=== PATIENT | female | born 1935 | race Hispanic/Latino ===

== ENCOUNTER 2017-10-25 09:33 | Observation (INO) | payer OTHER, MEDICARE ==
[~2017-10-25] VITALS: Ht 160 cm; Wt 88.2 kg
[2017-10-25] MEDS ORDERED: METHYLPREDNISOLONE SOD SUCC 40MG/ML 1ML ONE (10:39)
[2017-10-25] MEDS ORDERED: BENZONATATE 100 MG CAPSULE PO ONE (10:40)
[2017-10-25] MEDS ORDERED: IPRATROPIUM/ALBUTEROL SULFATE 3 ML SOLUTION IH ONE (10:51)
[2017-10-25 10:53] LABS: BASOPHILS % (AUTO) 1.9 % (0.0-5.0); EOSINOPHILS % (AUTO) 9.4 % (0.0-8.0); HEMATOCRIT 34.6 % (36-48); LYMPHOCYTES % (AUTO) 19.6 % (21.0-51.0); MEAN CORPUSCULAR HEMOGLOBIN 35.3 pg (27.0-33.0); MEAN CORPUSCULAR HGB CONC 33.5 g/dL (32.0-36.0); MEAN CORPUSCULAR VOLUME 105.1 fL (79-99); MONOCYTES % (AUTO) 4.8 % (3.0-13.0); NEUTROPHILS % (AUTO) 64.3 % (40.0-77.0); PLATELET COUNT (AUTO) 378 K/uL (130-400); RED BLOOD CELL COUNT(AUTO) 3.29 MIL/uL (4.00-5.50); RED CELL DISTRIBUTION WIDTH 19.5 % (11.0-15.5)
[2017-10-25 11:12] LABS: CREATININE 0.6 mg/dL (0.5-1.5); POTASSIUM 3.9 mmol/L (3.5-5.1)
[2017-10-25 11:17] LABS: ALBUMIN 3.6 g/dL (3.5-5.0); BILIRUBIN,TOTAL 0.7 mg/dL (0.2-1.0); TOTAL PROTEIN, SERUM 6.9 g/dL (6.0-8.3)
[2017-10-25] MEDS ORDERED: ACETAMINOPHEN 325 MG TAB ONE (15:16)
[2017-10-25 15:50] VITALS: BP 144/68
[2017-10-25] MEDS: IPRATROPIUM/ALBUTEROL SULFATE 3 ML SOLUTION IH PRN ×2 (18:04→22:17)
[2017-10-25] MEDS ORDERED: ALBU18HF7 IH (18:22)
[2017-10-25] MEDS ORDERED: TYL3 PO (18:22)
[2017-10-25] MEDS: METHYLPREDNISOLONE SOD SUCC 40MG/ML 1ML IVP SCH (18:27)
[2017-10-25] MEDS ORDERED: ALBUTEROL SULFATE 0.083% 2.5 MG/3 ML INH IH PRN (18:30)
[2017-10-25 20:30] VITALS: BP 139/69
[2017-10-25 23:50] VITALS: BP 141/70
[2017-10-26] MEDS: METHYLPREDNISOLONE SOD SUCC 40MG/ML 1ML IVP SCH ×5 (01:04→23:16)
[2017-10-26] MEDS: IPRATROPIUM/ALBUTEROL SULFATE 3 ML SOLUTION IH PRN ×5 (01:04→18:16)
[2017-10-26] MEDS: ACETAMINOPHEN-CODEINE 300/30MG TAB PO PRN ×3 (02:39→18:02)
[2017-10-26] MEDS ORDERED: BENZONATATE 100 MG CAPSULE PO ONE (03:19)
[2017-10-26 04:30] VITALS: BP 144/65
[2017-10-26 08:00] VITALS: BP 144/66
[2017-10-26 12:00] VITALS: BP 140/62
[2017-10-26 15:44] VITALS: BP 110/54
[2017-10-26] MEDS: BENZONATATE 100 MG CAPSULE PO PRN (17:57)
[2017-10-26] MEDS: AZITHROMYCIN 250 MG TABLET PO SCH (18:02)
[2017-10-26 20:06] VITALS: BP 143/77
[2017-10-26] MEDS ORDERED: BENZOCAINE/MENTH/CETYLPYRD CL 1 EACH LOZENGE MM ONE (21:22)
[2017-10-26] MEDS ORDERED: BENZOCAINE/MENTH/CETYLPYRD CL 1 EACH LOZENGE MM PRN (21:30)
[2017-10-27] VITALS (7 sets, daily range): BP systolic 128–169; BP diastolic 63–85
[2017-10-27] MEDS: IPRATROPIUM/ALBUTEROL SULFATE 3 ML SOLUTION IH PRN ×6 (01:56→22:14)
[2017-10-27] MEDS: METHYLPREDNISOLONE SOD SUCC 40MG/ML 1ML IVP SCH ×3 (04:34→17:44)
[2017-10-27 05:10] LABS: HEMATOCRIT 31.9 % (36-48); MEAN CORPUSCULAR HEMOGLOBIN 35.7 pg (27.0-33.0); MEAN CORPUSCULAR HGB CONC 33.8 g/dL (32.0-36.0); MEAN CORPUSCULAR VOLUME 105.6 fL (79-99); PLATELET COUNT (AUTO) 370 K/uL (130-400); RED BLOOD CELL COUNT(AUTO) 3.02 MIL/uL (4.00-5.50); WHITE BLOOD COUNT (AUTO) 9.7 K/uL (4.8-10.8)
[2017-10-27 05:19] LABS: CREATININE 0.6 mg/dL (0.5-1.5); POTASSIUM 4.1 mmol/L (3.5-5.1)
[2017-10-27 05:26] LABS: LYMPHOCYTES % (MANUAL) 7 % (22-44); MAN.DIFF COMMENT-IMPRESSION MANUAL DIFFERENTIAL; MONOCYTES % (MANUAL) 2 % (2-9); PLATELET MORPHOLOGY COMMENT ADEQUATE; SEGMENTED NEUTROPHILS % 91 % (40-70)
[2017-10-27] MEDS: BENZONATATE 100 MG CAPSULE PO PRN (08:03)
[2017-10-27] MEDS: ACETAMINOPHEN-CODEINE 300/30MG TAB PO PRN (08:03)
[2017-10-27 09:52] LABS: APPEARANCE,URINE Clear (CLEAR); BILIRUBIN,URINE Negative (NEGATIVE); COLOR,URINE Yellow (YELLOW); GLUCOSE, URINE (UA) Negative (NEGATIVE); KETONES,URINE Negative (NEGATIVE); LEUKOCYTE ESTERASE ,URINE Trace (NEGATIVE); NITRATE,URINE Negative (NEGATIVE); OCCULT BLOOD,URINE Negative (NEGATIVE); PH,URINE 6.5 (5.0-8.0); PROTEIN,URINE Negative (NEGATIVE)
[2017-10-27 09:59] LABS: BACTERIA,URINE Rare /HPF (None Seen); RBC,URINE 0-1 /HPF (0-1); SQUAMOUS EPITHELIAL CELL,UR Rare /LPF (0-2); WBC,URINE 0-1 /HPF (0-1)
[2017-10-27] MEDS: AZITHROMYCIN 250 MG TABLET PO SCH (17:45)
[2017-10-28 03:55] VITALS: BP 153/78
[2017-10-28 08:00] VITALS: BP 149/80
[2017-10-28] MEDS: BENZONATATE 100 MG CAPSULE PO PRN (09:48)
[2017-10-28 11:00] VITALS: BP 154/91
== END 2017-10-28 16:59 | disposition home or self-care (01) ==
LOC: EDH 09:33 → EDHIP 12:27 → 4BH 15:59
PROVIDERS: ADMIT Internal Medicine; ATTEND Internal Medicine
DX: J45.41 Moderate persistent asthma with (acute) exacerbation (principal); J20.9 Acute bronchitis, unspecified; I12.9 Hypertensive chronic kidney disease with stage 1 through stage 4 chronic kidney disease, or unspecified chronic kidney disease; N18.9 Chronic kidney disease, unspecified; I45.10 Unspecified right bundle-branch block; E78.5 Hyperlipidemia, unspecified; I73.9 Peripheral vascular disease, unspecified; K21.9 Gastro-esophageal reflux disease without esophagitis; M81.0 Age-related osteoporosis without current pathological fracture; Z83.3 Family history of diabetes mellitus; Z91.19 Patient's noncompliance with other medical treatment and regimen; Z79.899 Other long term (current) drug therapy; Z98.49 Cataract extraction status, unspecified eye
CPT/HCPCS: 36415 ×2; 71046; 80048; 80053; 81001; 84484; 85025 ×2; 93005; 94640 ×14; 94664; 96374; 96376 ×2; 99285; A4510; G0378 ×77; J2920 ×10

== ENCOUNTER 2018-06-11 07:18 | Emergency (ER) | payer OTHER, MEDICARE ==
[~2018-06-11 07:18] MED LIST: ALBU18HF7 IH; TYL3 PO
[2018-06-11] MEDS ORDERED: IPRATROPIUM/ALBUTEROL SULFATE 3 ML SOLUTION IH ONE ×2 (07:34→08:00)
[2018-06-11] MEDS ORDERED: METHYLPREDNISOLONE SOD SUCC 125MG/2ML VIAL ONE (07:35)
[2018-06-11 07:36] LABS: EOSINOPHILS % (AUTO) 10.9 % (0.0-8.0); HEMATOCRIT 35.9 % (36-48); LYMPHOCYTES % (AUTO) 26.3 % (21.0-51.0); MEAN CORPUSCULAR HEMOGLOBIN 33.5 pg (27.0-33.0); MEAN CORPUSCULAR HGB CONC 32.5 g/dL (32.0-36.0); MEAN CORPUSCULAR VOLUME 103.2 fL (79-99); MONOCYTES % (AUTO) 3.8 % (3.0-13.0); PLATELET COUNT (AUTO) 350 K/uL (130-400); RED BLOOD CELL COUNT(AUTO) 3.47 MIL/uL (4.00-5.50); RED CELL DISTRIBUTION WIDTH 14.8 % (11.0-15.5); WHITE BLOOD COUNT (AUTO) 7.1 K/uL (4.8-10.8)
[2018-06-11 07:44] LABS: CREATININE 0.6 mg/dL (0.5-1.5); POTASSIUM 4.1 mmol/L (3.5-5.1)
[2018-06-11 07:51] LABS: ALBUMIN 3.6 g/dL (3.5-5.0); BILIRUBIN,TOTAL 0.6 mg/dL (0.2-1.0)
[2018-06-11 08:01] LABS: INR 0.98 (0.85-1.15); PARTIAL THROMBOPLASTIN TIME 29.2 SEC (26.3-35.5); PROTHROMBIN TIME 10.3 SEC (9.6-11.6)
[2018-06-11] MEDS ORDERED: ALBUTEROL SULFATE 0.083% 2.5 MG/3 ML INH IH ONE (12:41)
== END 2018-06-11 15:39 | disposition home or self-care (01) ==
LOC: EDH 07:18
DX: J45.41 Moderate persistent asthma with (acute) exacerbation (principal)
CPT/HCPCS: 36415; 71045; 80053; 82550; 83605; 84484; 85025; 85610; 85730; 87804 ×2; 93005; 94640 ×3; 96374; 99291; 99292; J2930

== ENCOUNTER 2019-05-18 14:13 | Observation (INO) | payer OTHER, MEDICARE ==
[~2019-05-18] VITALS: Ht 162.6 cm; Wt 72.5 kg
[2019-05-18 15:29] LABS: BASOPHILS % (AUTO) 0.9 % (0.0-5.0); EOSINOPHILS % (AUTO) 3.9 % (0.0-8.0); HEMATOCRIT 30.8 % (36-48); LYMPHOCYTES % (AUTO) 22.3 % (21.0-51.0); MEAN CORPUSCULAR HEMOGLOBIN 39.5 pg (27.0-33.0); MEAN CORPUSCULAR VOLUME 115.9 fL (79-99); MONOCYTES % (AUTO) 4.4 % (3.0-13.0); NEUTROPHILS % (AUTO) 68.5 % (40.0-77.0); PLATELET COUNT (AUTO) 325 K/uL (130-400); RED BLOOD CELL COUNT(AUTO) 2.66 MIL/uL (4.00-5.50); RED CELL DISTRIBUTION WIDTH 14.7 % (11.0-15.5); WHITE BLOOD COUNT (AUTO) 7.4 K/uL (4.8-10.8)
[2019-05-18 15:43] LABS: CREATININE 0.8 mg/dL (0.5-1.5); POTASSIUM 4.4 mmol/L (3.5-5.1)
[2019-05-18 15:48] LABS: ALBUMIN 3.6 g/dL (3.5-5.0); BILIRUBIN,TOTAL 0.4 mg/dL (0.2-1.0); TOTAL PROTEIN, SERUM 6.6 g/dL (6.0-8.3)
[2019-05-18] MEDS ORDERED: IOHEXOL-350 75 ML VIAL IV ONE (15:49)
[2019-05-18 17:30] VITALS: BP 135/68
[2019-05-18 20:00] VITALS: BP 150/65
[2019-05-18] MEDS ORDERED: IPRATROPIUM/ALBUTEROL SULFATE 3 ML SOLUTION IH PRN (20:00)
[2019-05-18] MEDS: ZOSYN 3.375GM+NS 50ML 50 ML IV SCH (21:41)
[2019-05-19] VITALS: BP 151/48
[2019-05-19 04:00] VITALS: BP 151/75
[2019-05-19] MEDS: ZOSYN 3.375GM+NS 50ML 50 ML IV SCH ×3 (05:32→20:31)
[2019-05-19 05:41] LABS: HEMATOCRIT 28.1 % (36-48); MEAN CORPUSCULAR HEMOGLOBIN 39.2 pg (27.0-33.0); MEAN CORPUSCULAR HGB CONC 34.1 g/dL (32.0-36.0); PLATELET COUNT (AUTO) 305 K/uL (130-400); RED BLOOD CELL COUNT(AUTO) 2.44 MIL/uL (4.00-5.50); RED CELL DISTRIBUTION WIDTH 14.7 % (11.0-15.5); WHITE BLOOD COUNT (AUTO) 5.4 K/uL (4.8-10.8)
[2019-05-19 05:56] LABS: ALBUMIN 3.1 g/dL (3.5-5.0); BILIRUBIN,TOTAL 0.5 mg/dL (0.2-1.0); CREATININE 0.7 mg/dL (0.5-1.5); POTASSIUM 4.1 mmol/L (3.5-5.1); TOTAL PROTEIN, SERUM 5.8 g/dL (6.0-8.3)
[2019-05-19 07:00] VITALS: BP 155/66
[2019-05-19 11:00] VITALS: BP 139/64
[2019-05-19 16:00] VITALS: BP 144/63
[2019-05-19] MEDS: PANTOPRAZOLE 40 MG/VIAL IVP SCH (16:13)
--- NOTE | 2019-05-19 16:50 | NUR ---
INIITIAL MET W PT ALONE, AAOX3, NPO- COMPLAINING OF HUNGER, TESTS IN PROGRESS, RE EXPLAINED RATIONALE FOR NPO AND DIAGNOSTICS, EXHIBITED GOOD UNDERSTANDING- LIVES ALONE, INDEPENDENT, DRIVES, STAIRS UP INTO THE HOUSE, STATES I DO NOT NEED ANY HELP OR EQUIPMENT, MY HOSUE IS SON[facility] AND SAFE, I DO ALL MY OWN HOUSE WORK" GERTRUDE THORNTON TO PROVIDE TRANSPORT Addendum: 05/19/19 at 1902 by ANGE LEE RN CM Amended: Links added.
[2019-05-19 19:49] VITALS: BP 121/57
--- NOTE | 2019-05-19 21:57 | NUR ---
MD ROUNDS DR. AGGARWAL HERE SPOKE WITH PATIENT. RECEIVED ORDERS TO START PATIENT ON REGULAR DIET TONIGHT IF SHE SO WANTS AND WILL COME TOMORROW. SEE WHAT SURGEON PLAN IS AND POSSIBLY DISCHARGE HOME IF NO SURGERY OR OTHER PROCEDURES ARE TO BE DONE AND EXPLAINED THIS TO PATIENT.
[2019-05-19] MEDS ORDERED: TRAMADOL HCL 50 MG TABLET PO PRN (22:00)
[2019-05-20 03:45] VITALS: BP 128/62
[2019-05-20] MEDS: ZOSYN 3.375GM+NS 50ML 50 ML IV SCH (06:04)
[2019-05-20 07:30] VITALS: BP 143/55
[2019-05-20 11:00] VITALS: BP 122/40
[2019-05-20] MEDS: PANTOPRAZOLE 40 MG/VIAL IVP SCH (11:02)
--- NOTE | 2019-05-20 12:00 | NUR ---
NOTE ELYSIA EPPERSON CAME IN EARLIER AND WROTE OKAY TO DC FROM [facility]. SHE WILL FOLLOW UP WITH THEM IF NEEDED. DR AGGARWAL PAGED TO ASK FOR DC ORDERS. ALSO WAS RECOMMENDED FROM SURGEON TO RX NERVE PAIN MEDS FOR H/O SHINGLES
--- NOTE | 2019-05-20 15:40 | NUR ---
NOTE DISCHARGE INSTRUCTIONS GIVEN TO PATIENT AT THIS TIME. STABLE UPON LEAVING. INSTRUCTED TO DRYERMAN/WOMAN HER RX FOR GABAPENTIN AND START TAKING IT TOMORROW. SHE STILL C/O BURNING PAIN RIGHT LOWER BACK RADIATES TO RUQ
== END 2019-05-20 16:01 | disposition home or self-care (01) ==
LOC: EDH 14:13 → EDHIP 14:14 → 3AH 16:46
PROVIDERS: ADMIT Internal Medicine; ATTEND Internal Medicine
DX: K80.11 Calculus of gallbladder with chronic cholecystitis with obstruction (principal); J45.909 Unspecified asthma, uncomplicated; Z79.899 Other long term (current) drug therapy
CPT/HCPCS: 36415 ×2; 74177; 76700; 78226; 80053 ×2; 85025; 85027; 85060; 94664; 96365; 96366 ×3; 96375; 96376; 99284; A4600; A9537; C9113 ×2; G0378 ×50; J2543 ×5; Q9967

== ENCOUNTER 2020-12-18 15:33 | Emergency (ER) | payer MEDICARE, OTHER ==
[2020-12-18 16:22] LABS: BASOPHILS % (AUTO) 0.7 % (0.0-5.0); EOSINOPHILS % (AUTO) 8.1 % (0.0-8.0); HEMATOCRIT 32.4 % (36-48); MEAN CORPUSCULAR HEMOGLOBIN 29.8 pg (27.0-33.0); MEAN CORPUSCULAR HGB CONC 32.4 g/dL (32.0-36.0); MONOCYTES % (AUTO) 5.3 % (3.0-13.0); NEUTROPHILS % (AUTO) 60.5 % (40.0-77.0); PLATELET COUNT (AUTO) 299 K/uL (130-400); RED BLOOD CELL COUNT(AUTO) 3.52 MIL/uL (4.00-5.50); RED CELL DISTRIBUTION WIDTH 13.1 % (11.0-15.5); WHITE BLOOD COUNT (AUTO) 6.8 K/uL (4.8-10.8)
[2020-12-18 16:33] LABS: CREATININE 1.2 mg/dL (0.5-1.5)
[2020-12-18 16:35] LABS: INR 1.06 (0.85-1.15); PARTIAL THROMBOPLASTIN TIME 23.4 SEC (26.3-35.5)
[2020-12-18 16:37] LABS: ALBUMIN 3.8 g/dL (3.5-5.0); BILIRUBIN,TOTAL 0.5 mg/dL (0.2-1.0); CRP QUANTITATIVE 6.9 mg/L (0.00-9.0)
[2020-12-18 16:45] LABS: APPEARANCE,URINE SL CLOUDY (CLEAR); BILIRUBIN,URINE NEGATIVE (NEGATIVE); COLOR,URINE YELLOW (YELLOW); GLUCOSE, URINE (UA) NEGATIVE (NEGATIVE); KETONES,URINE NEGATIVE (NEGATIVE); LEUKOCYTE ESTERASE ,URINE MODERATE (NEGATIVE); NITRATE,URINE NEGATIVE (NEGATIVE); OCCULT BLOOD,URINE TRACE-INTACT (NEGATIVE); PROTEIN,URINE NEGATIVE (NEGATIVE); UROBILINOGEN,URINE 0.2 mg/dL (0.2-1.0)
[2020-12-18 16:48] LABS: BACTERIA,URINE Few /HPF (None Seen); SQUAMOUS EPITHELIAL CELL,UR Rare /HPF (0-2); WBC,URINE 26-50 /HPF (0-1)
[2020-12-18] MEDS ORDERED: CEFTRIAXONE SODIUM 1 GM ONE (17:12)
[2020-12-18] MEDS ORDERED: PHENAZOPYRIDINE HCL 200 MG TABLET ONE (17:12)
== END 2020-12-18 17:27 | disposition home or self-care (01) ==
LOC: EDH 15:33
DX: N30.90 Cystitis, unspecified without hematuria (principal); K57.90 Diverticulosis of intestine, part unspecified, without perforation or abscess without bleeding; K80.80 Other cholelithiasis without obstruction; Z20.822 Contact with and (suspected) exposure to COVID-19; J45.909 Unspecified asthma, uncomplicated; Z98.890 Other specified postprocedural states
CPT/HCPCS: 36415; 71045; 74176; 80053; 81001; 82550; 83605; 84484; 85025; 85610; 85730; 86140; 87077; 87088; 87186; 87426; 93005; 96365; 96366; 99285; J0696; U0003

== ENCOUNTER 2021-01-15 16:58 | Inpatient (IN) | payer MEDICARE, OTHER ==
[~2021-01-15] VITALS: Ht 157.5 cm; Wt 67.0 kg
[2021-01-15 19:30] LABS: BASOPHILS % (AUTO) 0.6 % (0.0-5.0); EOSINOPHILS % (AUTO) 1.4 % (0.0-8.0); HEMATOCRIT 28.7 % (36-48); LYMPHOCYTES % (AUTO) 19.4 % (21.0-51.0); MEAN CORPUSCULAR HEMOGLOBIN 31.4 pg (27.0-33.0); MEAN CORPUSCULAR HGB CONC 33.1 g/dL (32.0-36.0); MEAN CORPUSCULAR VOLUME 94.7 fL (79-99); MONOCYTES % (AUTO) 5.8 % (3.0-13.0); NEUTROPHILS % (AUTO) 72.5 % (40.0-77.0); PLATELET COUNT (AUTO) 215 K/uL (130-400); RED BLOOD CELL COUNT(AUTO) 3.03 MIL/uL (4.00-5.50); RED CELL DISTRIBUTION WIDTH 15.4 % (11.0-15.5); WHITE BLOOD COUNT (AUTO) 6.5 K/uL (4.8-10.8)
[2021-01-15 19:37] LABS: CREATININE 1.5 mg/dL (0.5-1.5); POTASSIUM 3.9 mmol/L (3.5-5.1)
[2021-01-15 19:42] LABS: ALBUMIN 3.8 g/dL (3.5-5.0); BILIRUBIN,TOTAL 0.6 mg/dL (0.2-1.0); TOTAL PROTEIN, SERUM 6.9 g/dL (6.0-8.3)
[2021-01-15] MEDS ORDERED: ONDANSETRON HCL 4 MG/2 ML VIAL ONE (20:40)
[2021-01-15] MEDS ORDERED: SODIUM CHLORIDE 0.9% 1000ML 1,000 ML IV ONE (20:42)
[2021-01-15 20:55] LABS: INR 1.09 (0.85-1.15); PROTHROMBIN TIME 11.8 SEC (9.6-11.6)
[2021-01-15 20:56] LABS: PARTIAL THROMBOPLASTIN TIME 25.8 SEC (26.3-35.5)
[2021-01-16] MEDS ORDERED: ONDANSETRON HCL 4 MG/2 ML VIAL IVP PRN (00:30)
[2021-01-16] MEDS ORDERED: MAGNESIUM CITRATE 296 ML SOLUTION PO SCH (00:30)
[2021-01-16] MEDS: SODIUM CHLORIDE 0.9% 1000ML 1,000 ML IV SCH ×2 (00:30→20:30)
[2021-01-16] MEDS ORDERED: ACETAMINOPHEN 325 MG TAB PO PRN (00:30)
[2021-01-16] MEDS ORDERED: SODIUM CHLORIDE 0.9% 1000ML 1,000 ML IV ONE (08:44)
[2021-01-16] MEDS: ENOXAPARIN SODIUM 30 MG/0.3 ML SQ SCH (09:00)
[2021-01-16] MEDS ORDERED: ACETAMINOPHEN 325 MG TAB ONE (10:20)
[2021-01-17 01:06] VITALS: BP 161/65
[2021-01-17 01:23] VITALS: BP 133/62
[2021-01-17 04:20] VITALS: BP 144/69
[2021-01-17] MEDS ORDERED: [UNRECOGNIZED DRUG - CODE] MC (08:49)
[2021-01-17] MEDS ORDERED: HYDR-3422 PO (08:49)
[2021-01-17] MEDS ORDERED: DONE10TA43 PO (08:49)
[2021-01-17] MEDS ORDERED: ESCI-8 PO (08:49)
[2021-01-17] MEDS ORDERED: FURO40TA5 PO (08:49)
[2021-01-17 09:42] VITALS: BP 169/74
[2021-01-17] MEDS: ENOXAPARIN SODIUM 30 MG/0.3 ML SQ SCH (10:07)
[2021-01-17 14:28] VITALS: BP 151/59
[2021-01-17 20:00] VITALS: BP 124/74
[2021-01-17] MEDS: SODIUM CHLORIDE 0.9% 1000ML 1,000 ML IV SCH (23:41)
[2021-01-18] VITALS (7 sets, daily range): BP systolic 100–197; BP diastolic 61–92
[2021-01-18 09:39] LABS: HEMATOCRIT 28.5 % (36-48); MEAN CORPUSCULAR HEMOGLOBIN 30.6 pg (27.0-33.0); MEAN CORPUSCULAR VOLUME 92.8 fL (79-99); RED BLOOD CELL COUNT(AUTO) 3.07 MIL/uL (4.00-5.50); RED CELL DISTRIBUTION WIDTH 15.4 % (11.0-15.5)
[2021-01-18 09:48] LABS: CREATININE 0.9 mg/dL (0.5-1.5); MAGNESIUM 1.9 mg/dL (1.80-2.40); POTASSIUM 4.3 mmol/L (3.5-5.1)
[2021-01-18] MEDS: ENOXAPARIN SODIUM 30 MG/0.3 ML SQ SCH (10:03)
[2021-01-18] MEDS: SODIUM CHLORIDE 0.9% 1000ML 1,000 ML IV SCH ×2 (12:50→20:11)
[2021-01-18] MEDS ORDERED: HALOPERIDOL LACTATE 5 MG/ML VIAL IM SCH (22:15)
[2021-01-18] MEDS ORDERED: HALOPERIDOL LACTATE 5 MG/ML VIAL ONE (22:43)
[2021-01-19] VITALS (7 sets, daily range): BP systolic 140–154; BP diastolic 56–68
[2021-01-19 05:41] LABS: HEMATOCRIT 27.5 % (36-48); MEAN CORPUSCULAR HEMOGLOBIN 30.7 pg (27.0-33.0); MEAN CORPUSCULAR HGB CONC 31.6 g/dL (32.0-36.0); MEAN CORPUSCULAR VOLUME 97.2 fL (79-99); RED BLOOD CELL COUNT(AUTO) 2.83 MIL/uL (4.00-5.50); RED CELL DISTRIBUTION WIDTH 15.8 % (11.0-15.5); WHITE BLOOD COUNT (AUTO) 7.3 K/uL (4.8-10.8)
[2021-01-19 05:55] LABS: CREATININE 0.7 mg/dL (0.5-1.5); MAGNESIUM 1.9 mg/dL (1.80-2.40)
[2021-01-19] MEDS: ENOXAPARIN SODIUM 30 MG/0.3 ML SQ SCH (09:00)
[2021-01-19] MEDS ORDERED: ACETAMINOPHEN-CODEINE 300/30MG TAB PO PRN (17:30)
[2021-01-19] MEDS: FUROSEMIDE 40 MG TABLET PO SCH (20:16)
[2021-01-19] MEDS: DONEPEZIL HCL 5 MG TAB PO SCH (20:16)
[2021-01-19] MEDS: HYDROXYZINE HCL 25 MG TABLET PO SCH (20:16)
[2021-01-19] MEDS: SODIUM CHLORIDE 0.9% 1000ML 1,000 ML IV SCH (20:17)
[2021-01-19] MEDS: NYSTATIN 100000 UNIT/ML 5ML UDCUP PO SCH (20:24)
[2021-01-20 03:49] VITALS: BP 155/55
[2021-01-20 08:00] VITALS: BP 151/63
[2021-01-20] MEDS: NYSTATIN 100000 UNIT/ML 5ML UDCUP PO SCH ×3 (09:00→21:24)
[2021-01-20] MEDS: CITALOPRAM 20 MG TABLET PO SCH (10:53)
[2021-01-20] MEDS: FUROSEMIDE 40 MG TABLET PO SCH ×2 (10:53→21:25)
[2021-01-20] MEDS: ENOXAPARIN SODIUM 30 MG/0.3 ML SQ SCH (10:54)
[2021-01-20 11:38] VITALS: BP 150/94
[2021-01-20 16:00] VITALS: BP 138/58
[2021-01-20 20:06] VITALS: BP 137/61
[2021-01-20] MEDS: HYDROXYZINE HCL 25 MG TABLET PO SCH (21:25)
[2021-01-20] MEDS: SODIUM CHLORIDE 0.9% 1000ML 1,000 ML IV SCH (21:25)
[2021-01-20] MEDS: DONEPEZIL HCL 5 MG TAB PO SCH (21:25)
[2021-01-20 23:52] VITALS: BP 156/76
[2021-01-21 04:04] VITALS: BP 169/76
[2021-01-21 08:51] VITALS: BP 198/75
[2021-01-21] MEDS: CITALOPRAM 20 MG TABLET PO SCH (10:28)
[2021-01-21] MEDS: NYSTATIN 100000 UNIT/ML 5ML UDCUP PO SCH ×4 (10:29→21:24)
[2021-01-21] MEDS: FUROSEMIDE 40 MG TABLET PO SCH ×2 (10:29→21:24)
[2021-01-21] MEDS: ENOXAPARIN SODIUM 30 MG/0.3 ML SQ SCH (10:30)
[2021-01-21 11:00] VITALS: BP 134/64
[2021-01-21 16:48] VITALS: BP 158/65
[2021-01-21 19:46] VITALS: BP 141/78
[2021-01-21] MEDS: DONEPEZIL HCL 5 MG TAB PO SCH (21:24)
[2021-01-21] MEDS: HYDROXYZINE HCL 25 MG TABLET PO SCH (21:24)
[2021-01-21 23:19] VITALS: BP 143/65
[2021-01-22 04:15] VITALS: BP 133/76
[2021-01-22] MEDS: SODIUM CHLORIDE 0.9% 1000ML 1,000 ML IV SCH (04:38)
[2021-01-22 04:46] LABS: HEMATOCRIT 26.8 % (36-48); MEAN CORPUSCULAR HEMOGLOBIN 30.3 pg (27.0-33.0); MEAN CORPUSCULAR HGB CONC 32.8 g/dL (32.0-36.0); MEAN CORPUSCULAR VOLUME 92.4 fL (79-99); RED BLOOD CELL COUNT(AUTO) 2.9 MIL/uL (4.00-5.50); RED CELL DISTRIBUTION WIDTH 15.6 % (11.0-15.5); WHITE BLOOD COUNT (AUTO) 5.7 K/uL (4.8-10.8)
[2021-01-22 04:55] LABS: CREATININE 0.9 mg/dL (0.5-1.5); MAGNESIUM 1.6 mg/dL (1.80-2.40); POTASSIUM 3.2 mmol/L (3.5-5.1)
[2021-01-22] MEDS: ENOXAPARIN SODIUM 30 MG/0.3 ML SQ SCH (09:00)
[2021-01-22] MEDS: CITALOPRAM 20 MG TABLET PO SCH (09:00)
[2021-01-22] MEDS: FUROSEMIDE 40 MG TABLET PO SCH ×3 (09:00→21:56)
[2021-01-22] MEDS: NYSTATIN 100000 UNIT/ML 5ML UDCUP PO SCH ×5 (09:00→21:57)
[2021-01-22 09:44] VITALS: BP 180/75
[2021-01-22 12:11] VITALS: BP 164/73
[2021-01-22] MEDS: MAGNESIUM 2GM PREMIX 50ML 50 ML IV SCH (14:59)
[2021-01-22 16:52] VITALS: BP 144/61
[2021-01-22 19:20] VITALS: BP 116/70
[2021-01-22] MEDS: DONEPEZIL HCL 5 MG TAB PO SCH ×2 (21:00→21:56)
[2021-01-22] MEDS: HYDROXYZINE HCL 25 MG TABLET PO SCH (21:56)
[2021-01-22 23:55] VITALS: BP 145/86
[2021-01-23] MEDS: SODIUM CHLORIDE 0.9% 1000ML 1,000 ML IV SCH ×2 (03:20→12:30)
[2021-01-23 03:40] VITALS: BP 154/76
[2021-01-23 08:45] VITALS: BP 172/79
[2021-01-23] MEDS: NYSTATIN 100000 UNIT/ML 5ML UDCUP PO SCH ×3 (11:05→13:59)
[2021-01-23] MEDS: FUROSEMIDE 40 MG TABLET PO SCH (11:06)
[2021-01-23] MEDS: ENOXAPARIN SODIUM 30 MG/0.3 ML SQ SCH (11:08)
[2021-01-23] MEDS: CITALOPRAM 20 MG TABLET PO SCH (11:08)
[2021-01-23 12:32] VITALS: BP 132/60
[2021-01-23] MEDS: MAGNESIUM 2GM PREMIX 50ML 50 ML IV SCH (12:52)
[2021-01-23] MEDS ORDERED: POTASSIUM CHLORIDE 20 MEQ ERTAB PO SCH (13:45)
[2021-01-23 17:10] VITALS: BP 118/55
== END 2021-01-23 20:15 | DRG 641 ==
LOC: EDH 16:58 → OBSVTOIN 22:15 → EDHIP 22:15 → 3DH 01-16 23:14
PROVIDERS: ADMIT Internal Medicine Infectious Disease; ATTEND Internal Medicine Infectious Disease
DX: E86.0 Dehydration (principal); N17.9 Acute kidney failure, unspecified; I10 Essential (primary) hypertension; R62.7 Adult failure to thrive; M19.90 Unspecified osteoarthritis, unspecified site; K21.9 Gastro-esophageal reflux disease without esophagitis; K56.41 Fecal impaction; R53.81 Other malaise; D72.829 Elevated white blood cell count, unspecified; F03.90 Unspecified dementia, unspecified severity, without behavioral disturbance, psychotic disturbance, mood disturbance, and anxiety; I73.9 Peripheral vascular disease, unspecified; Z20.822 Contact with and (suspected) exposure to COVID-19; Z68.27 Body mass index [BMI] 27.0-27.9, adult; Z74.01 Bed confinement status; Z88.8 Allergy status to other drugs, medicaments and biological substances; J45.909 Unspecified asthma, uncomplicated; F32.9 Major depressive disorder, single episode, unspecified
CPT/HCPCS: 36415; 71045; 74176; 80048; 80053; 82550; 82948; 83605; 83690; 83735; 84132; 84484; 85025; 85027; 85610; 85730; 87040; 87426; 93005; 97039; G0378; J1630; J1650; J2405; J3475; J7030; U0003